=== PATIENT | male | born 2000 | race African-American/Black ===

== ENCOUNTER 2024-04-21 20:32 | Emergency (ER) | payer MEDICAID ==
[~2024-04-21] VITALS: Ht 177.8 cm; Wt 81.6 kg
[2024-04-21 20:32] VITALS: BP 113/60; TEMP 98.2; O2SAT 98
== END 2024-04-21 21:49 | disposition home or self-care (01) ==
LOC: ER 20:40
DX: F19.10 Other psychoactive substance abuse, uncomplicated (principal)